=== PATIENT | female | born 1990 | race Caucasian/White ===

== ENCOUNTER 2020-11-28 12:08 | Emergency (ER) | payer OTHER ==
[~2020-11-28 12:08] MED LIST: AUGMENTIN 875-1 EACH PO; BACLOFEN 10MG T10 MG PO; IBUPROFEN800 MG PO; MACROBID100 MG PO; MEDROL 4MG DOSEP4 MG PO; NAPROXEN500 MG PO; PRENATAL FORMU1 EACH PO
[2020-11-28] MEDS ORDERED: CLEOCIN300 MG PO (13:17)
[2020-11-28] MEDS ORDERED: NORCO 5-325 TA1 EACH PO (13:17)
== END 2020-11-28 13:40 | disposition home or self-care (01) ==
LOC: FER 12:08
DX: K04.7 Periapical abscess without sinus (principal); K02.9 Dental caries, unspecified
CPT/HCPCS: 99282